=== PATIENT | female | born 1985 | race Caucasian/White ===

== ENCOUNTER 2024-04-23 00:43 | Day surgery (SDC) | payer BC, SELFPAY ==
--- NOTE | 2024-04-17 09:07 | SUR.PREOP ---
Report to the Outpatient Waiting Room, entrance under the green pavilion located off [facility], at time 0600 on date 04/23/24. Planned Procedure Time: 0730 Time changes happen often and if your time is changed the preop area will call you the afternoon before. - You and your visitor will be asked to self-screen and do not enter if you have any COVID symptoms. Please call surgeon if you need to reschedule. - A mask is optional within the hospital at this time. Patients may have clear liquids (water, carbonated beverages, clear teas, apple juice) until 3 hours prior to surgery with a maximum of 20 ounces. - No food from midnight until time of surgery and no smoking - Infants may have breast milk until 4 hours before surgery, infant formula 6 hours prior to surgery. - Children will be allowed to drink immediately following surgery.? If applicable, please bring a bottle or sippy cup to assist with drinking. Juice, water, soda, and popsicles are readily available.? For infants on formula, please bring formula the day of surgery.? Pacifiers are allowed. Take only the following medications with a SIP of water on the morning of surgery: SERTRALINE DO NOT STOP ANY OF YOUR OTHER PRESCRIPTION MEDICATIONS PRIOR TO SURGERY EXCEPT THE FOLLOWING Medications to discontinue per physician VITAMINS & SUPPLEMENTS Date to take last dose 04/20/24 Please no make-up, nail equatorial guinean, hairspray, perfume, deodorant, or body powder the day of surgery.? No jewelry (including any body piercings) or valuables the day of surgery, leave them at home.? Please take a shower or bath the night before, or the morning of, surgery with an antibacterial soap.? Wear comfortable, loose fitting clothing.? Children are encouraged to wear pajamas. - Jewelry must be removed prior to entering the operating room.? Rings and piercings that are not removed may be cut off. - The hospital will not accept responsibility for valuables.? - Please leave all valuables, including medications, at home the day of surgery. If you are going home after surgery, a licensed drop hammer pile driver operator must drive you home.? - NO public transportation without another adult if you receive anesthesia. - We recommend that an adult stay with you for 24 hours following discharge. - We also recommend that you do not drive, make important decision, drink alcoholic beverages, or take any drugs that were not prescribed by your health care provider for at least 24 hours after your discharge time. For Pediatric surgeries, we recommend two adults accompany the child home. Follow any additional instructions given to you from your surgeon. Telephone instructions given to LANEY PASCAL and asked if any additional questions and then verbalized understanding. Patient advised to call surgeon office or pre surgery nurse liaison [phone] if any additional questions.
[2024-04-17 09:23] VITALS: BMI 39.0
[2024-04-23] VITALS (8 sets, daily range): BP systolic 103–123; BP diastolic 63–89; PULSE 76–92; RESP 16–25; TEMP 36.2–36.8; O2SAT 92–100
[2024-04-23] MEDS: LACTATED RINGERS 1,000 ML 30 ML IV CONT ×2 (06:45→08:41)
[2024-04-23] MEDS: ACETAMINOPHEN 500 MG TABLET 1000 MG PO (07:00)
[2024-04-23] MEDS: KETOROLAC 15 MG/ML VIAL (*BKC) IV PUSH (07:00)
--- NOTE | 2024-04-23 07:07 | WPDANESEPPF ---
Anes - Initial Pre Proc Eval Procedure: Operation Date: 04/23/24 07:30 Proposed Procedures p Laparoscopic Bilateral Salpingectomy - Dameon Hanley MD Date/Time: 04/23/24 07:07 Surgeon: Dameon Hanley MD Pre Op Diagnosis: Sterilization requested Patient Data Age: 39 Gender: F Height: 1.6 m Weight: 100 kg Allergies Allergy/AdvReac Type Severity Reaction Status Date / Time phenobarbital Allergy Unknown Verified 04/17/24 09:26 Home Medications Medication Instructions Recorded Confirmed Type multivitamin,[id number] 1 tablet PO DAILY 04/17/24 04/17/24 History sertraline 50 mg tablet 50 mg PO DAILY 04/17/24 04/17/24 History telmisartan 20 mg tablet 20 mg PO DAILY 04/17/24 04/17/24 History valacyclovir 500 mg tablet 500 mg PO DAILY 04/17/24 04/17/24 History Patient hx anesthesia problems: none Family hx anesthesia problems: none Results Review: All pre-operative results and documents have been reviewed as part of the pre-operative evaluation. [facility] Social History Social History Smoking status: Never smoker Additional living arrangements comments: WITH SOMEONE Spiritual care concerns: No Anes - Eval Final PreProcedure Day of Procedure 04/23/24 07:07 Patient weight: obese Heart: regular rate and rhythm Lungs: clear to auscultation Airway: Mallampati scale class II Neurological: alert and oriented Last oral intake: >/= 8 hours ASA classification: III Emergent: no Anesthetic plan: proceed Anesthesia type and monitoring: general ETT and standard monitoring Results Review: All pre-operative results and documents have been reviewed as part of the pre-operative evaluation. Informed Consent: The patient's anesthetic plan and its attendant risks and benefits were discussed with the patient/family/POA. Questions were solicited and answers provided to the satisfaction of the patient/family/POA.
--- NOTE | 2024-04-23 07:22 | PM.IMHP ---
H&P: HPI History of Present Illness Date/Time: 04/23/24 07:22 Chief Complaint: desires sterilization Narrative: Patient is a 39 year old female who presents for bilateral salpingectomy. She has an IUD in place for menorrhagia, however she also desires permanent sterilization as well. risks and benefits discussed with patient who voices understanding, including permanence of procedure. Denies abdominal pain, nausea, or vomiting. Review of Systems Review of Systems: All systems reviewed & are unremarkable except as noted in HPI and below PMFSH Social History Social History Smoking status: Never smoker Additional living arrangements comments: WITH SOMEONE Spiritual care concerns: No Meds Home Medications and Allergies Home Medications Medication Instructions Recorded Confirmed Type multivitamin,bb-qlrv-[id number] 1 tablet PO DAILY 04/17/24 04/23/24 History sertraline 50 mg tablet 50 mg PO DAILY 04/17/24 04/23/24 History telmisartan 20 mg tablet 20 mg PO DAILY 04/17/24 04/23/24 History valacyclovir 500 mg tablet 500 mg PO DAILY 04/17/24 04/23/24 History Allergies Allergy/AdvReac Type Severity Reaction Status Date / Time phenobarbital Allergy Unknown Verified 04/17/24 09:26 Exam Const: General: comfortable and no acute distress HENMT: Mouth: Yes moist mucous membranes Resp: Effort & Inspection: normal respiratory effort GI: GI Palp: Yes Soft to palpation and No Tenderness to palpation present (GI) Other: two small superficial wax celestin on abdomen, away from planned incision sites Skin: General skin exam: normal color Extrem: General: normal to inspection Psych: Mental Status: mental status grossly normal Assessment and Plan Assessment and plan (1) Admission for sterilization: Code(s): Z30.2 - Encounter for sterilization Status: Acute Assessment and Plan: - patient desires permanent sterilization - risks, benefits, and alternatives to bilateral salpingectomy discussed with patient who voices understanding - Will proceed with bilateral salpingectomy - Plan to leave IUD in place
[2024-04-23 07:26] LABS: BEDSIDEPREGUCG Negative (Negative)
--- NOTE | 2024-04-23 07:26 | WPDHPUPDATE1 ---
History and Physical Update Update Date/Time: 04/23/24 07:26 History and Physical has been reviewed, including an updated exam of the patient. There are NO changes in the patient's condition. Risks, benefits, and alternatives have been discussed and questions answered. Patient agrees to proceed with procedure.
--- NOTE | 2024-04-23 07:43 | P.OP_ITS ---
Procedure Note - Detailed Date of Procedure 04/23/24 Pre-op Diagnosis Sterilization requested Post-op Diagnosis Same Procedure Performed laparoscopic bilateral salpingectomy Surgeon Dameon Hanley MD Anesthesia General Indications desires sterilization Findings Normal appearing fallopian tubes and ovaries, large 5cm lower uterine segment fibroid, mild adhesions at left pelvic brim, undisturbed after surgery Description of Procedure With IV fluids infusing, the patient was taken to the operating room. The patient was placed in supine position. General anesthesia with endotracheal intubation was given. A time-out took place. The patient was placed in dorsal lithotomy position using Owen stirrups and she was prepped and draped in the usual sterile fashion. The bladder was drained using a red rubber catheter. A sterile speculum was placed vaginally, the anterior lip of the cervix was grasped with a single-tooth tenaculum and the acorn uterine manipulator was placed without difficulty. The speculum was removed. The surgeon's gloves were changed and attention was turned to the abdomen. A 5 mm incision was made in the umbilicus. Under direct visualization with the scope, the LUQ port was inserted without difficulty. Another two trocars were placed under direct visualization in the left upper and left lower quadrants. The patient was placed in Trendelenburg and inspection of the pelvis noted the a lauren findings. Appropriate pictures were taken. Using the LigaSure devise, a left salpingectomy was performed in the usual fashion. Care was taken to avoid the IP ligament. The salpingectomy went smo othly. The same procedure was repeated on the right side. The instruments were all removed from the abdomen and the CO2 gas was allowed to escape. The three skin incisions were reapproximated with 4-0 Polysorb in a subcuticular manner, followed by skin glue. The acorn manipulator and single tooth tenaculum was removed from the uterus and cervix, respectively. The tenaculum sites were hemostatic. IUD strings were visualized at beginning and end of procedure at the cervical os with no disturbance of IUD. All instruments were removed from the vagina. At the end of the case, instrument, sponge and needle counts were correct x 2. The patient was awakened from general anesthesia and was taken to PACU in stable condition. Estimated Blood Loss 10 Pathology Yes Complications No immediate complications Condition Stable Disposition Same day
== END 2024-04-23 10:20 | disposition home or self-care (01) ==
PROVIDERS: PCP Family Medicine; Visit Provider Obstetrics & Gynecology
PROC: (CPT 49320; principal; 2024-04-23 07:30)
DX: Z30.2 Encounter for sterilization (principal); N73.6 Female pelvic peritoneal adhesions (postinfective); N83.8 Other noninflammatory disorders of ovary, fallopian tube and broad ligament; N70.11 Chronic salpingitis; E66.9 Obesity, unspecified; Z68.38 Body mass index [BMI] 38.0-38.9, adult
CPT/HCPCS: 58661; 88302; A9270; J0330; J1100; J1885; J2250; J2405; J2704; J3010; J7030; J7120